=== PATIENT | male | born 1955 | race Caucasian/White ===

== ENCOUNTER 2022-05-16 23:30 | Inpatient (IN) | payer MEDICARE, BC ==
[2022-05-17] MEDS ORDERED: Sodium Chloride 0.9% 10 ML Syringe FLUSH PRN
[2022-05-17] MEDS ORDERED: Sodium Chloride 0.9% 2.5 ML Syringe FLUSH PRN
[2022-05-17] MEDS ORDERED: Lactated Ringers 1,000 ML IV ONE (00:01)
[2022-05-17 00:33] LABS: CARBON DIOXIDE,CO2 23.3 mmol/L (21.0-32.0); POTASSIUM,K 3.5 mmol/L (3.5-5.1)
[2022-05-17] MEDS ORDERED: Sodium Chloride 0.9% 1,000 ML IV ONE ×2 (00:51→02:10)
[2022-05-17 01:18] LABS: CORONAVIRUS COVID-19 NAA NEGATIVE (NEGATIVE); INFLUENZA A NAA NEGATIVE (NEGATIVE); INFLUENZA B NAA NEGATIVE (NEGATIVE)
[2022-05-17] MEDS ORDERED: Sodium Chloride 0.9% 1,000 ML IV SCH (02:15)
[2022-05-17 03:17] LABS: CARBON DIOXIDE,CO2 23.3 mmol/L (21.0-32.0); POTASSIUM,K 3.3 mmol/L (3.5-5.1)
[2022-05-17] MEDS: Sodium Chloride 0.9% 1,000 ML IV SCH ×2 (03:38→13:52)
[2022-05-17 06:44] LABS: CARBON DIOXIDE,CO2 23.7 mmol/L (21.0-32.0); POTASSIUM,K 3.6 mmol/L (3.5-5.1)
[2022-05-17] MEDS: Insulin Aspart 100 Units/ML 3 ML Pen SUBCUT SCH ×3 (07:55→17:45)
[2022-05-17] MEDS: Heparin Sodium 5,000 Units/ML Vial SUBCUT SCH ×2 (10:36→21:15)
[2022-05-17] MEDS: Azithromycin 500 MG in Sodium Chloride 0.9% 250 ML IV SCH (10:40)
[2022-05-17] MEDS ORDERED: Acetaminophen 325 MG Tab PO PRN (13:39)
[2022-05-17] MEDS ORDERED: oxyCODONE 5 MG Tab PO PRN (13:41)
[2022-05-17] MEDS: Simvastatin 40 MG Tab PO SCH (21:15)
[2022-05-18] MEDS: Sodium Chloride 0.9% 1,000 ML IV SCH ×3 (01:39→21:47)
[2022-05-18 06:14] LABS: CARBON DIOXIDE,CO2 25.3 mmol/L (21.0-32.0); POTASSIUM,K 3.7 mmol/L (3.5-5.1)
[2022-05-18] MEDS: Omeprazole 20 MG Cap.CR PO SCH (06:34)
[2022-05-18] MEDS: Insulin Aspart 100 Units/ML 3 ML Pen SUBCUT SCH ×3 (07:20→17:05)
[2022-05-18] MEDS: Azithromycin 500 MG in Sodium Chloride 0.9% 250 ML IV SCH (08:41)
[2022-05-18] MEDS: Heparin Sodium 5,000 Units/ML Vial SUBCUT SCH ×2 (08:41→21:07)
[2022-05-18] MEDS: Simvastatin 40 MG Tab PO SCH (21:07)
[2022-05-19] MEDS: Insulin Aspart 100 Units/ML 3 ML Pen SUBCUT SCH ×2 (06:31→11:21)
[2022-05-19] MEDS: Omeprazole 20 MG Cap.CR PO SCH (06:32)
[2022-05-19] MEDS: Sodium Chloride 0.9% 1,000 ML IV SCH (07:51)
[2022-05-19] MEDS ORDERED: Azithromycin 250 MG Tab PO ONE (09:29)
[2022-05-19] MEDS: Azithromycin 500 MG in Sodium Chloride 0.9% 250 ML IV SCH (09:32)
[2022-05-19] MEDS: Heparin Sodium 5,000 Units/ML Vial SUBCUT SCH (09:56)
[2022-05-19 10:02] LABS: CARBON DIOXIDE,CO2 27.3 mmol/L (21.0-32.0); POTASSIUM,K 4.3 mmol/L (3.5-5.1)
== END 2022-05-19 12:30 | disposition home or self-care (01) | DRG 683 ==
LOC: MW.ED 23:30 → MW.MS 05-17 03:27
PROVIDERS: ADMIT Internal Medicine; ATTEND Internal Medicine
DX: N17.9 Acute kidney failure, unspecified (principal); A09 Infectious gastroenteritis and colitis, unspecified; E87.1 Hypo-osmolality and hyponatremia; E86.0 Dehydration; K21.9 Gastro-esophageal reflux disease without esophagitis; E11.9 Type 2 diabetes mellitus without complications; I10 Essential (primary) hypertension; R19.7 Diarrhea, unspecified; E78.5 Hyperlipidemia, unspecified; Z86.16 Personal history of COVID-19; Z79.82 Long term (current) use of aspirin; Z79.4 Long term (current) use of insulin; Z79.899 Other long term (current) drug therapy; Z20.822 Contact with and (suspected) exposure to COVID-19
CPT/HCPCS: 0240U; 36415; 74176; 80048; 80053; 82570; 82947; 83605; 83690; 84300; 85025; 87045; 87046; 87449; 87899; 96360; 96361; 99285; 99221; 99231; 99239; 99284; A9270-GY; J0456; J1644; J3490; J7030; J7050; J7120

== ENCOUNTER 2022-10-11 08:13 | Day surgery (SDC) | payer MEDICARE ==
[~2022-10-11 08:13] MED LIST: Lactated Ringers 1,000 ML IV SCH; cefOXitin 2 GM in Premix Bag 1 BAG IV ONE
[2022-10-11] MEDS ORDERED: Midazolam 1 MG/ML 2 ML SDV ONE (09:03)
[2022-10-11] MEDS ORDERED: fentaNYL 100 MCG/2 ML SDV ONE (09:03)
[2022-10-11] MEDS ORDERED: Lidocaine 2% 5 ML SDV ONE (09:03)
[2022-10-11] MEDS ORDERED: Propofol 200 MG/20 ML SDV ONE ×2 (09:03→09:34)
[2022-10-11] MEDS ORDERED: cefOXitin 1 GM Vial ONE (09:23)
[2022-10-11] MEDS ORDERED: ceFAZolin 2 GM Vial ONE (09:26)
[2022-10-11] MEDS ORDERED: Dexamethasone 4 MG/ML 5 ML MDV ONE (09:40)
[2022-10-11] MEDS ORDERED: Ketorolac 30 MG/ML SDV ONE (09:40)
[2022-10-11] MEDS ORDERED: Ondansetron 4 MG/2 ML SDV ONE (09:40)
[2022-10-11] MEDS ORDERED: Lactated Ringers 1,000 ML IV SCH (10:00)
== END 2022-10-11 10:26 | disposition home or self-care (01) ==
LOC: MW.SDS 08:13
PROVIDERS: ATTEND Surgery
DX: Z12.11 Encounter for screening for malignant neoplasm of colon (principal); D12.3 Benign neoplasm of transverse colon; M19.90 Unspecified osteoarthritis, unspecified site; K57.30 Diverticulosis of large intestine without perforation or abscess without bleeding; E78.5 Hyperlipidemia, unspecified; K21.9 Gastro-esophageal reflux disease without esophagitis; I10 Essential (primary) hypertension; Z80.0 Family history of malignant neoplasm of digestive organs; Z79.899 Other long term (current) drug therapy; Z98.890 Other specified postprocedural states; Z98.84 Bariatric surgery status
CPT/HCPCS: 45380; 82947; J0694; J2704; J3010; J7120; J0690; J1100; J1885; J2250; J2405; J3490